=== PATIENT | female | born 1965 | race Caucasian/White ===

== ENCOUNTER 2017-08-23 10:16 | Emergency (ER) | payer MEDICAID ==
[~2017-08-23] VITALS: Ht 154.9 cm; Wt 72.1 kg
[2017-08-23 10:26] VITALS: Ht 154.9 cm; Wt 72.1 kg
[2017-08-23 11:20] VITALS: BP 126/71
== END 2017-08-23 11:20 | disposition home or self-care (01) ==
LOC: ED 10:16
DX: H60.8X2 Other otitis externa, left ear (principal)